=== PATIENT | female | born 1960 | race American Indian/Alaskan Native ===

== ENCOUNTER 2016-09-16 16:20 | Emergency (ER) | payer MEDICARE, OTHER ==
[2016-09-16 17:40] LABS: Eosinophils % (Auto) 6.5 % (0.0-4.3); Hematocrit 39.2 % (30.3-42.9); Hemoglobin 12.5 gm/dl (10.1-14.3); Mean Corpuscular HGB Conc 32 % (30-34); Mean Corpuscular Hemoglobin 27 pg (28-32); Mean Corpuscular Volume 83 fl (79-97); Platelet Count 304 K/mm3 (140-440); Red Cell Distribution Width 14.7 % (13.2-15.2); White Blood Count 6.1 K/mm3 (4.5-11.0)
[2016-09-16 17:57] LABS: Bacteria,Urine 1+ /HPF (Negative); Bilirubin,Urine NEG (Negative); Blood,Urine NEG (Negative); Ketones,Urine NEG (Negative); Leukocyte Esterase,Urine TR (Negative); Mucus,Urine FEW /HPF; Nitrite,Urine NEG (Negative); Protein,Urine <15 mg/dL mg/dL (Negative); Urobilinogen,Urine < 2.0 mg/dL (<2.0)
[2016-09-16 17:57] LABS: Anion Gap 15 mmol/L; Blood Urea Nitrogen 13 mg/dL (7-17); Calcium 9.3 mg/dL (8.4-10.2); Carbon Dioxide 27 mmol/L (22-30); Chloride 100.4 mmol/L (98-107); Glucose 93 mg/dL (65-100); Potassium 3.6 mmol/L (3.6-5.0); Sodium 139 mmol/L (137-145)
[2016-09-16] MEDS ORDERED: TORADOL IV ONE (20:42)
[2016-09-16] MEDS ORDERED: ZOFRAN IV ONE (20:42)
[2016-09-16] MEDS ORDERED: DILAUDID IV ONE (20:42)
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
[2016-09-16 21:28] VITALS: BP 138/86
[2016-09-16] MEDS ORDERED: NACL ONE (22:11)
--- NOTE | 2016-09-16 23:41 | Cat Scan Report ---
FINAL REPORT PROCEDURE: CT ABDOMEN PELVIS W CON TECHNIQUE: Computerized axial tomography of the abdomen and pelvis was performed after the IV injection of iodinated nonionic contrast. Oral contrast was not given. HISTORY: Lower pelvic pain. Lower abdominal pain COMPARISON: No prior studies are available for comparison. FINDINGS: Visualized lower thorax: There is mild patchy atelectasis and or fibrotic change in both lung bases.. Liver: Normal size and attenuation. Spleen: Normal size and attenuation. Gallbladder and biliary system: Normal. Pancreas: Normal. Adrenals: Normal. Kidneys: Normal. GI tract: The bowel appears unremarkable when considering lack of contrast. However the appendix cannot be identified with certainty.. Lymph nodes and mesentery: Normal. Vasculature: Normal. Bladder: The urinary bladder is slightly deviated to the left due to a rightward tilt of the uterus. Reproductive organs: The uterus is somewhat tilted to the right. The fundus of the uterus is slightly bulbous or full and has a slightly heterogenous pattern with slightly heterogenous enhancement. This is nonspecific. It could be due to normal variation. However underlying uterine fibroid here is not excluded. However overall the uterus is not well evaluated by CT. Peritoneum: No free fluid. Musculoskeletal structures: Extensive surgical metallic hardware in the posterior lower thoracic and upper lumbar spine noted. This is producing some streak artifact. There is moderate anterolisthesis of T12 on L1. The metallic hardware bridges this level.. Other: There is a small 1.3 centimeter periumbilical hernia containing fat only.. IMPRESSION: 1. There is no CT evidence of distinct acute finding. 2. The uterus is tilted somewhat to the right. The fundus of the uterus is slightly heterogenous and slightly bulbous or full. This could be due to normal variation. However underlying uterine fibroid here is possible. However overall the uterus is not well evaluated by CT. A follow-up pelvic ultrasound may be helpful to better characterize the uterus. 3. There is a 1.3 centimeter periumbilical hernia containing fat only. 4. Surgically placed metallic hardware in the posterior lower thoracic and upper lumbar spine causes moderate streak artifact. At this level there is a moderate anterolisthesis of T12 on L1.
== END 2016-09-17 00:11 | disposition home or self-care (01) ==
LOC: ED 16:20
DX: G82.20 Paraplegia, unspecified (principal); R10.2 Pelvic and perineal pain; I10 Essential (primary) hypertension; Z88.0 Allergy status to penicillin
CPT/HCPCS: 36415; 74177; 80048; 81001; 81025; 85025; 96374; 96375; 99284; J1170; J1885; J2405; Q9967

== ENCOUNTER 2016-09-20 10:47 | Emergency (ER) | payer MEDICARE, OTHER ==
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
[2016-09-20 13:29] LABS: Basophils % (Auto) 0.5 % (0.0-1.8); Eosinophils % (Auto) 5.3 % (0.0-4.3); Hematocrit 37.4 % (30.3-42.9); Hemoglobin 11.7 gm/dl (10.1-14.3); Mean Corpuscular HGB Conc 31 % (30-34); Mean Corpuscular Volume 83 fl (79-97); Platelet Count 291 K/mm3 (140-440); Red Blood Count 4.53 M/mm3 (3.65-5.03); Red Cell Distribution Width 14.6 % (13.2-15.2); White Blood Count 6.9 K/mm3 (4.5-11.0)
[2016-09-20 13:59] LABS: Anion Gap 19 mmol/L; Blood Urea Nitrogen 16 mg/dL (7-17); Carbon Dioxide 24 mmol/L (22-30); Chloride 103.8 mmol/L (98-107); Glucose 91 mg/dL (65-100); Potassium 3.7 mmol/L (3.6-5.0); Sodium 143 mmol/L (137-145)
[2016-09-20 14:00] LABS: Mean Corpuscular Hemoglobin 26 pg (28-32)
[2016-09-20 15:23] LABS: Bilirubin,Urine NEG (Negative); Blood,Urine NEG (Negative); Ketones,Urine NEG (Negative); Leukocyte Esterase,Urine NEG (Negative); Nitrite,Urine POS (Negative); Protein,Urine <15 mg/dL mg/dL (Negative); Urobilinogen,Urine < 2.0 mg/dL (<2.0)
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
--- NOTE | 2016-09-20 17:04 | Ultrasound Report ---
FINAL REPORT EXAM: US TRANSVAGINAL HISTORY: suprapubic pain TECHNIQUE: Grayscale and color and spectral doppler ultrasound imaging of the pelvis was performed transvaginally. PRIORS: CT of the abdomen and pelvis 09/16/2016. FINDINGS: Uterus: The uterus is homogeneous in echogenicity without focal mass. The uterus measures 7.4 x 3.9 x 4.5 centimeters. Endometrium: The endometrium is normal in echogenicity. The endometrium measures 5.3 millimeters. Ovaries: The ovaries are normal in echogenicity without cyst or mass. Normal arterial and venous waveforms were seen to the ovaries. Normal flow is seen to the ovaries. The right ovary measures 2.7 x 2.7 x 0.7 centimeters. The left ovary measures 2.2 x 0.9 x 1.7 centimeters. Free fluid: None. IMPRESSION: Normal pelvic ultrasound.
--- NOTE | 2016-09-20 17:05 | Ultrasound Report ---
FINAL REPORT EXAM: US PELVIS DUPLEX DOPPLER COMP HISTORY: suprapubic pain TECHNIQUE: Grayscale and color and spectral doppler ultrasound imaging of the pelvis was performed transabdominally and transvaginally. PRIORS: None. FINDINGS: Uterus: The uterus is homogeneous in echogenicity without focal mass. The uterus measures 7.4 x 3.9 x 4.5 centimeters. Endometrium: The endometrium is normal in echogenicity. The endometrium measures 5.3 millimeters. Ovaries: The ovaries are normal in echogenicity without cyst or mass. Normal arterial and venous waveforms were seen to the ovaries. Normal flow is seen to the ovaries. The right ovary measures 2.7 x 2.7 x 0.7 centimeters. The left ovary measures 2.2 x 0.9 x 1.7 centimeters. Free fluid: None. IMPRESSION: Normal pelvic ultrasound.
[2016-09-20] MEDS ORDERED: MACROBID PO ONE (17:17)
[2016-09-20 18:15] VITALS: BP 116/79
== END 2016-09-20 18:15 | disposition home or self-care (01) ==
LOC: ED 10:47
DX: R30.0 Dysuria (principal); R10.2 Pelvic and perineal pain; I10 Essential (primary) hypertension; Z96.0 Presence of urogenital implants; Z88.0 Allergy status to penicillin
CPT/HCPCS: 36415; 76830; 80048; 81001; 85025; 87076; 87086; 87186; 93975